=== PATIENT | female | born 1955 | race Caucasian/White ===

== ENCOUNTER 2021-07-30 14:48 | Emergency (ER) | payer OTHER ==
[2021-07-30] MEDS ORDERED: HYDROCODON-ACE1 EAC2 PO (16:37)
== END 2021-07-30 16:53 | disposition home or self-care (01) ==
LOC: ER1 14:48
DX: S42.255A Nondisplaced fracture of greater tuberosity of left humerus, initial encounter for closed fracture (principal); S42.215A Unspecified nondisplaced fracture of surgical neck of left humerus, initial encounter for closed fracture; E11.9 Type 2 diabetes mellitus without complications; E78.5 Hyperlipidemia, unspecified; Z88.1 Allergy status to other antibiotic agents; W01.0XXA Fall on same level from slipping, tripping and stumbling without subsequent striking against object, initial encounter; Y92.009 Unspecified place in unspecified non-institutional (private) residence as the place of occurrence of the external cause
CPT/HCPCS: 73030; 73060; 73070; 99283

== ENCOUNTER → 2021-08-03 | Outpatient (CLI) | payer OTHER ==
[~2021-08-03] MED LIST: HYDROCODON-ACE1 EAC2 PO
== END ==
LOC: KOH-I 10:28
DX: S42.202A Unspecified fracture of upper end of left humerus, initial encounter for closed fracture (principal)
CPT/HCPCS: 73200